=== PATIENT | female | born 1985 | race Caucasian/White ===

== ENCOUNTER 2021-03-18 11:14 | Emergency (ER) | payer OTHER ==
[~2021-03-18] VITALS: Ht 154.9 cm; Wt 92.5 kg
[2021-03-18] MEDS ORDERED: MOBIC7.5 MG PO (12:41)
[2021-03-18 13:30] VITALS: BP 130/79
== END 2021-03-18 14:23 | disposition home or self-care (01) ==
LOC: ER 11:14
DX: M25.511 Pain in right shoulder (principal); G43.909 Migraine, unspecified, not intractable, without status migrainosus

== ENCOUNTER 2021-06-09 15:50 | Emergency (ER) | payer OTHER ==
[~2021-06-09] VITALS: Ht 154.9 cm; Wt 90.7 kg
[~2021-06-09 15:50] MED LIST: MOBIC7.5 MG PO
[2021-06-09] MEDS ORDERED: FLEXERIL PO (16:27)
[2021-06-09 17:38] VITALS: BP 140/87
[2021-06-09] MEDS ORDERED: EPIPEN 2-P0.3 MG/0.3 IM (17:49)
== END 2021-06-09 17:45 | disposition home or self-care (01) ==
LOC: ER 15:50
DX: T78.40XA Allergy, unspecified, initial encounter (principal); G43.909 Migraine, unspecified, not intractable, without status migrainosus; Z79.899 Other long term (current) drug therapy; X58.XXXA Exposure to other specified factors, initial encounter